=== PATIENT | female | born 2005 | race Two or more races ===

== ENCOUNTER 2025-05-20 23:21 | Emergency (ER) | payer OTHER ==
[~2025-05-20] VITALS: Ht 170.2 cm; Wt 61.2 kg
[2025-05-20 23:36] VITALS: BP 107/72; O2SAT 97
[2025-05-20] MEDS ORDERED: PRENATABS RX T1 EACH (23:36)
[2025-05-20] MEDS ORDERED: RINGERS SOLUTION,LACTATED 1,000 ML IV ONE (23:45)
[2025-05-20] MEDS ORDERED: PROMETHAZINE HCL 50 MG/ML AMPUL IM STA (23:57)
[2025-05-20] MEDS ORDERED: FAMOTIDINE/PF 20 MG/2 ML VIAL IV PUSH STA (23:57)
[2025-05-21] MEDS ORDERED: PROMETHAZINE HCL 50 MG/ML AMPUL IM ONE (00:05)
[2025-05-21] MEDS ORDERED: FAMOTIDINE/PF 20 MG/2 ML VIAL ONE (00:06)
[2025-05-21 00:47] LABS: BASO % 0.3 % (0.1-1.2); EOS # 0.26 (0.04-0.54); EOS % 3.5 % (0.7-7.0); LYMPH # 2.31 (1.18-3.74); LYMPH % 31.1 % (19.3-53.1); MEAN PLATELET VOLUME 11.00 fl (9.4-12.4); MONO # 0.61 (0.24-0.82); MONO % 8.2 % (4.7-12.5); NEUT # 4.20 (1.56-6.13); NEUT % 56.6 % (34.0-71.1); RED CELL DISTRIBUTION WIDTH 12.7 % (11.6-14.4)
[2025-05-21 01:05] LABS: INR < 0.93
[2025-05-21 01:10] LABS: ALT/SGPT 12 U/L (12-78); AST/SGOT 10 U/L (15-37); BILIRUBIN TOTAL 0.22 mg/dL (0.3-1.2); BILIRUBIN,CONJUGATED < 0.10 mg/dL (0.0-0.2); BUN CREA RATIO 11 (7.0-25.0); CREATININE SERUM 0.64 mg/dL (0.55-1.02); GFR 117.14; GLOBULINA 3.6 G/DL (2.4-3.5); GLUCOSE FASTING 85 mg/dL (65-100); OSMOLALITY SERUM 278 MOSM/KG (275-295)
[2025-05-21 04:38] LABS: URINE APPEARANCE Clear; URINE BILIRRUBIN Negative (NEGATIVE); URINE BLOOD Negative; URINE COLOR Yellow; URINE GLUCOSE Negative (NEGATIVE); URINE KETONE Negative (NEGATIVE); URINE LEUKOCYTE Trace; URINE NITRATE Negative; URINE PROTEIN Negative (NEGATIVE); URINE UROBILINOGEN 0.2 E.U./dl
[2025-05-21 04:44] LABS: URINE BACTERIA 373.0 uL (0.0-1933); URINE EPITHELIAL CELLS 20.9 uL (0.0-38.8); URINE WBC 39.8 uL (0.0-23.2)
[2025-05-21 04:52] LABS: URINE CAST 0.29 uL (0.0-1.40); URINE RBC 1.7 uL (0.0-20.8)
[2025-05-21] MEDS ORDERED: PEPCID40 MG PO (05:19)
[2025-05-21] MEDS ORDERED: ONDANSETRON ODT8 MG PO (05:19)
== END 2025-05-21 05:39 ==
LOC: ER 23:22
PROVIDERS: General Practice
DX: Z33.1 Pregnant state, incidental (principal); Z3A.18 18 weeks gestation of pregnancy; R10.11 Right upper quadrant pain; R10.9 Unspecified abdominal pain; Z91.013 Allergy to seafood
CPT/HCPCS: 36415; 76700; 76817; 96365; 96372; 99284; J2550; J3490